=== PATIENT | female | born 1995 ===

== ENCOUNTER 2018-09-17 23:13 | Emergency (ER) | payer OTHER ==
[2018-09-17 23:18] VITALS: BP 143/85; PULSE 88; RESP 16; TEMP 98.4; O2SAT 99; BMI 41.9
--- NOTE | 2018-09-17 23:55 | ED PDOC ---
HPI: Wound Care - HPI Time Seen by Provider: 09/17/18 23:25 Chief Complaint (Nursing): Abnormal Skin Integrity Chief Complaint (Provider): right hand injury History Per: Patient History Of Present Illness: 22 y/o female presents for evaluation of injury to right hand. Patient states she was cleaning the dishes and a glass cup was chipped and cut her hand. Patient reports pain to the area. Denies numbness/weakness right upper extremity, limitation of movement. Tetanus up to date Past Medical History Reviewed: Historical Data, Nursing Documentation, Vital Signs Vital Signs: Last Vital Signs Temp 98.4 F 09/17/18 23:17 Pulse 88 09/17/18 23:17 Resp 16 09/17/18 23:17 BP 143/85 09/17/18 23:17 Pulse Ox 99 09/17/18 23:17 Primary Care Provider: Armando Chong - Medical History PMH: No Chronic Diseases - Family History Family History: States: No Known Family Hx - Living Arrangements Living Arrangements: With Family - Allergies Allergies/Adverse Reactions: Allergies Allergy/AdvReac Type Severity Reaction Status Date / Time No Known Allergies Allergy Verified 09/17/18 23:52 Review of Systems ROS Statement: Except As Marked, All Systems Reviewed And Found Negative Musculoskeletal: Positive for: Hand Pain (laceration base of right thumb) Physical Exam - Reviewed Nursing Documentation Reviewed: Yes Vital Signs Reviewed: Yes - Physical Exam Appears: Positive for: Well, Non-toxic, No Acute Distress Pulses-Radial (L): 2+ Pulses-Radial (R): 2+ Extremity: Positive for: Normal ROM, Other (superficial "C" shape abrasion base of right thumb. Wound edges together. No active bleeding. FROM. Distal NV/motor intact. No FB noted) Neurological/Psych: Positive for: Awake, Alert, Oriented (x3) - ECG O2 Sat by Pulse Oximetry: 99 - Other Rad xray right hand X-Ray: Viewed By [place] X-Ray Interpretation: no acute findings - Progress ED Course And Treament: -right hand xray -wound care Wound irrigated with 100mL NS. Bacitracin applied, bandage applied Patient educated on wound care, discharged with instructions to follow up with PMD within 2-3 days Return precautions given Disposition - Clinical Impression Clinical Impression: Abrasion of hand, right - Patient ED Disposition Is Patient to be Admitted: No Counseled Patient/Family Regarding: Studies Performed, Diagnosis, Need For Followup - Disposition Disposition: Routine/Home Disposition Time: 00:45 Condition: GOOD Instructions: Skin Abrasions Forms: [facility] (Mauritanian)
--- NOTE | 2018-09-18 11:29 | RAD ---
PROCEDURE: Right Hand Radiographs. HISTORY: cut base of thumb with glass COMPARISON: None. TECHNIQUE: 3 views obtained. FINDINGS: BONES: Normal. No fracture. JOINTS: Normal. No osteoarthritic changes. SOFT TISSUES: Normal. OTHER FINDINGS: None. IMPRESSION: Normal right hand radiographs. No visualized radiopaque foreign body.
== END 2018-09-18 00:48 | disposition home or self-care (01) ==
LOC: H.ER 23:13
DX: S60.511A Abrasion of right hand, initial encounter (principal); W25.XXXA Contact with sharp glass, initial encounter; Y92.000 Kitchen of unspecified non-institutional (private) residence as the place of occurrence of the external cause